=== PATIENT | male | born 1970 | race Caucasian/White ===

== ENCOUNTER 2017-10-28 06:02 | Observation (INO) | payer MEDICARE ==
[~2017-10-28] VITALS: Ht 181.6 cm; Wt 103.2 kg
[~2017-10-28 06:02] MED LIST: CeFAZolin 2 GM/DEXTROSE 50 ML IV ONE; RINGERS SOLUTION,LACTATED 1,000 ML IV ONE
[2017-10-28] MEDS ORDERED: MORPHINE SULFATE 4 MG/ML SYRINGE IVP ONE (06:03)
[2017-10-28] MEDS ORDERED: MIDAZOLAM HCL 2 MG/2 ML VIAL IVP ONE (06:03)
[2017-10-28] MEDS ORDERED: DEXAMETHASONE SOD PHOS 4 MG/ML VIAL IVP ONE (06:03)
[2017-10-28] MEDS ORDERED: ONDANSETRON HCL 4 MG/2 ML VIAL IVP ONE (06:03)
[2017-10-28] MEDS ORDERED: PROPOFOL 1% 20 ML VIAL IVP ONE (06:03)
[2017-10-28] MEDS ORDERED: ESMOLOL HCL 10 MG/ML 10 ML VIAL IVP ONE (06:03)
[2017-10-28] MEDS ORDERED: FentaNYL CITRATE-PF 250 MCG/5 ML VIAL IVP ONE (06:03)
[2017-10-28] MEDS ORDERED: LIDOCAINE HCL/PF 2% 5 ML VIAL IM ONE (06:03)
[2017-10-28] MEDS ORDERED: ACETAMINOPHEN 1000 MG/ISO-OSM 100 ML IV ONE (06:49)
[2017-10-28] MEDS ORDERED: ROCURONIUM BROMIDE 10 MG/ML 5 ML VIAL ONE (06:50)
[2017-10-28] MEDS ORDERED: SODIUM CHLORIDE 0.9% 100 ML ONE (06:50)
[2017-10-28 06:55] LABS: BASOPHILS % (AUTO) 0.8 % (0.0-2.0); EOSINOPHILS % (AUTO) 2.1 % (1.0-6.0); HEMATOCRIT 44.5 % (41-53); HEMOGLOBIN 15.5 g/dL (13.5-17.5); LYMPHOCYTES # (AUTO) 1.6 K/uL (1.0-4.8); MEAN CORPUSCULAR HEMOGLOBIN 30.6 pg (26.0-34.0); MEAN CORPUSCULAR HGB CONC 34.9 G/dL (31.0-37.0); MEAN CORPUSCULAR VOLUME 88 fL (80-100); MONOCYTES # (AUTO) 0.6 K/uL (0.1-1.0); MONOCYTES % (AUTO) 10.3 % (2.0-9.0); NEUTROPHILS # (AUTO) 3.5 K/uL (1.8-7.7); NEUTROPHILS % (AUTO) 59.8 % (40.0-70.0); PLATELET COUNT (AUTO) 288 K/uL (150-450); RED BLOOD CELL COUNT(AUTO) 5.08 MIL/uL (4.50-5.90)
[2017-10-28 07:11] LABS: INR 0.9 (0.9-1.1); PROTHROMBIN TIME 9.6 SEC (9.4-11.6)
[2017-10-28] MEDS ORDERED: BENZOCAINE/MENTHOL LOZENGE [8 LOZENGES/PACKET] PO PRN (07:30)
[2017-10-28] MEDS ORDERED: ZOLPIDEM TARTRATE 10 MG TABLET PO PRN (07:30)
[2017-10-28] MEDS ORDERED: DEXAMETHASONE SOD PHOS 4 MG/ML VIAL IVP PRN (07:30)
[2017-10-28] MEDS ORDERED: RINGERS SOLUTION,LACTATED 1,000 ML IV ONE (08:20)
[2017-10-28] MEDS ORDERED: HYDROmorphone 2 MG/ML SYRINGE IVP PRN (08:30)
[2017-10-28] MEDS ORDERED: MEPERIDINE-PF 25 MG/ML SYRINGE IVP PRN (08:30)
[2017-10-28] MEDS ORDERED: CYCLOBENZAPRINE HCL 10 MG TABLET PO PRN (08:30)
[2017-10-28] MEDS ORDERED: OxyCODONE HCL/ACETAMINOPHEN 10-325 MG TABLET PO PRN (08:30)
[2017-10-28] MEDS ORDERED: FentaNYL CITRATE-PF 100 MCG/2 ML VIAL IVP PRN (08:30)
[2017-10-28] MEDS: DOCUSATE SODIUM 100 MG CAPSULE PO SCH ×2 (09:00→20:37)
[2017-10-28] MEDS ORDERED: HYDROmorphone 2 MG/ML SYRINGE ONE (09:48)
[2017-10-28] MEDS ORDERED: MEPERIDINE-PF 25 MG/ML SYRINGE ONE (09:48)
[2017-10-28 11:44] VITALS: BP 125/75
[2017-10-28 15:12] VITALS: BP 127/80
[2017-10-28] MEDS: HYDROmorphone 2 MG/ML SYRINGE IVP PRN ×2 (15:15→21:56)
[2017-10-28 15:55] VITALS: BP 123/81
[2017-10-28] MEDS: ACETAMINOPHEN 1000 MG/ISO-OSM 100 ML IV SCH ×2 (16:18→21:55)
[2017-10-28 20:23] VITALS: BP 143/92
[2017-10-28 23:29] VITALS: BP 134/79
[2017-10-29] MEDS: ACETAMINOPHEN 1000 MG/ISO-OSM 100 ML IV SCH (04:12)
[2017-10-29 04:40] VITALS: BP 132/72
[2017-10-29 07:51] VITALS: BP 126/75
[2017-10-29] MEDS: DOCUSATE SODIUM 100 MG CAPSULE PO SCH (08:33)
== END 2017-10-29 11:35 | disposition home or self-care (01) ==
LOC: 4E 06:02
PROVIDERS: ADMIT Orthopaedic Surgery Orthopaedic Surgery of the Spine; ATTEND Orthopaedic Surgery Orthopaedic Surgery of the Spine
DX: I10 Essential (primary) hypertension (principal); M48.02 Spinal stenosis, cervical region
CPT/HCPCS: 20930; 22551; 22552; 22853 ×2; 36415; 85025; 85610; 85730; 87081; 93005; 96374; 96375; 96376 ×2; 97161; C1713 ×3; C1769; G0378 ×2; J0131 ×2; J0690; J1100; J1170; J2175; J2250; J2270; J2405; J2704; J3010; J3490 ×3; J7050; J7120; Z7506; Z7508; Z7610